=== PATIENT | female | born 1960 | race Caucasian/White ===

== ENCOUNTER 2016-09-07 14:56 | Emergency (ER) | payer OTHER ==
[2016-09-07 15:03] VITALS: BP 151/75; PULSE 73; TEMP 97.5; BMI 32.4
--- NOTE | 2016-09-07 16:28 | PDOC ---
History of Present Illness - General Chief Complaint: Rectal Bleed Stated Complaint: RASH Time Seen by Provider: 09/07/16 15:47 History Source: Patient Exam Limitations: No Limitations - History of Present Illness Initial Comments: 09/07/16 16:19 Patient is here with complaints of severe infection vaginally. States has suffered from multiple infections in the past, is probably related to her diabetes and usually resolves with course of Monistat cream that she buys over- the-counter. Patient states she has used one application for one week of Monistat but itching has persisted.. has continued thick white discharge, and significant itching. Is with one sexual partner but is not currently sexually active for many weeks. Partner has no symptoms. Dates blood sugar was within her normal limits today and checks it daily unable to get 2 months. Burning with her urination but feels is related to the excoriation she has sustained from scratching her perineum 09/07/16 19:30 Location: reports: none, genitalia Modifying Factors: improves with: scratching Associated Symptoms: reports: denies symptoms Past History - Travel Traveled outside of the country in the last 30 days: No Close contact w/someone who was outside of country & ill: No - Past Medical History Allergies/Adverse Reactions: Allergies Allergy/AdvReac Type Severity Reaction Status Date / Time No Known Allergies Allergy Verified 09/07/16 14:59 Home Medications: Ambulatory Orders Enalapril Maleate [Vasotec] 20 mg PO DAILY 12/14/15 Glimepiride 2 mg PO AM 12/14/15 Metformin HCl [Glucophage] 1,000 mg PO TID 12/14/15 Risperidone [Risperdal] 0 mg PO DAILY 12/14/15 Zolpidem Tartrate [Ambien] 10 mg PO HS 12/14/15 Fluconazole [Diflucan -] 150 mg PO DAILY #7 tablet 09/07/16 Diabetes: Yes (NIDDM) HTN: Yes - Psycho/Social/Smoking Cessation Hx Suicidal Ideation: No Smoking History: Never smoked Hx Alcohol Use: No Drug/Substance Use Hx: No Substance Use Type: None Review of Systems - Review of Systems Able to Perform ROS?: Yes Is the patient limited Macedonian proficient: Yes Constitutional: Yes: Symptoms Reported, See HPI, Malaise. No: Fever HEENTM: No: Symptoms Reported Respiratory: No: Symptoms reported Integumentary: Yes: Symptoms Reported, Lesions, Pruritus All Other Systems: Reviewed and Negative *Physical Exam - Vital Signs Last Vital Signs Temp Pulse Resp BP Pulse Ox 97.5 F L 73 18 151/75 100 09/07/16 15:01 09/07/16 15:01 09/07/16 15:01 09/07/16 15:01 09/07/16 15:01 - Physical Exam General Appearance: Yes: Nourished, Appropriately Dressed, Apparent Distress, Mild Distress HEENT: positive: TAMARA, Normal ENT Inspection, TMs Normal Respiratory/Chest: positive: Lungs Clear Female Pelvic Exam: negative: normal external exam (erythematous and excoriated perineum with whitish discharge vaginally. 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 NML intact, Fully Oriented, Alert, Normal Response, Motor Strength 5/5 Progress Note - Progress Note Progress Note: Vaginal candidiasis, will treat with Diflucan *DC/Admit/Observation/Transfer Diagnosis at time of Disposition: Loren vaginitis - Discharge Dispostion Disposition: HOME Condition at time of disposition: Stable Admit: No - Prescriptions Prescriptions: Fluconazole [Diflucan -] 150 mg PO DAILY #7 tablet - Referrals Referrals: STAFF,NOT ON [Primary Care Provider] - - Patient Instructions Printed Discharge Instructions: DI for Vaginal Yeast Infection Additional Instructions: Wash thoroughly with gentle soaps and dry thoroughly May use sitz baths, warm soaks 2-3 times a day Wear loose fitting clothes, and allow perineum to air dry Diflucan 150 mg tablet once, may repeat if not improved in 2-3 days May use Tylenol or Motrin for pain relief Follow-up with [facility] in 2-3 days or if worsening - Post Discharge Activity Work/School Note: Back to Work
== END 2016-09-07 16:37 | disposition home or self-care (01) ==
LOC: JERFT 14:56
DX: B37.3 Candidiasis of vulva and vagina (principal); E11.9 Type 2 diabetes mellitus without complications; I10 Essential (primary) hypertension; Z79.01 Long term (current) use of anticoagulants
CPT/HCPCS: 99281-25

== ENCOUNTER 2017-08-30 13:06 | Emergency (ER) | payer OTHER ==
[2017-08-30 13:10] VITALS: BP 122/83; PULSE 71; TEMP 98.6; BMI 32.5
[2017-08-30] MEDS ORDERED: traMADol HCL 50 MG TABLET PO ONE (15:14)
[2017-08-30] MEDS ORDERED: KETOROLAC TROMETHAMINE 30 MG/1 ML VIAL IM ONE (15:14)
[2017-08-30] MEDS ORDERED: traMADol HCL 50 MG TABLET ONE (15:16)
[2017-08-30] MEDS ORDERED: KETOROLAC TROMETHAMINE 30 MG/1 ML VIAL ONE (15:16)
--- NOTE | 2017-08-30 15:17 | PDOC ---
History of Present Illness - General Chief Complaint: Pain Stated Complaint: RT KNEE PAIN Time Seen by Provider: 08/30/17 14:57 History Source: Patient - History of Present Illness Occurred: reports: yesterday Severity: Yes: severe Lower Extremity Pain Location: right: knee Past History - Past Medical History Allergies/Adverse Reactions: Allergies Allergy/AdvReac Type Severity Reaction Status Date / Time No Known Allergies Allergy Verified 08/30/17 13:08 Home Medications: Ambulatory Orders Enalapril Maleate [Vasotec] 20 mg PO DAILY 12/14/15 Glimepiride 2 mg PO AM 12/14/15 Metformin HCl [Glucophage] 1,000 mg PO TID 12/14/15 Risperidone [Risperdal] 0 mg PO DAILY 12/14/15 Zolpidem Tartrate [Ambien] 10 mg PO HS 12/14/15 Fluconazole [Diflucan -] 150 mg PO DAILY #7 tablet 09/07/16 Acetaminophen [Tylenol] 650 mg PO Q6H #30 tablet 08/30/17 COPD: No Diabetes: Yes (NIDDM) HTN: Yes Hypercholesterolemia: Yes Other medical history: OP,ARITHRITIS - Suicide/Smoking/Psychosocial Hx Smoking History: Never smoked Have you smoked in the past 12 months: No Information on smoking cessation initiated: No Hx Alcohol Use: No Drug/Substance Use Hx: No Substance Use Type: None Review of Systems - Review of Systems Constitutional: No: Chills, Fever Musculoskeletal: Yes: Joint Pain, Joint Swelling *Physical Exam - Vital Signs Last Vital Signs Temp Pulse Resp BP Pulse Ox 98.6 F 71 18 122/83 100 08/30/17 13:08 08/30/17 13:08 08/30/17 13:08 08/30/17 13:08 08/30/17 13:08 - Physical Exam General Appearance: Yes: Appropriately Dressed, Mild Distress HEENT: positive: Normal Voice Respiratory/Chest: negative: Respiratory Distress Extremity: positive: Swelling (diffusely to R knee, pain w/ extension, no hot, red joint) Integumentary: positive: Dry, Warm Neurologic: positive: Fully Oriented, Alert, Normal Mood/Affect ED Treatment Course - RADIOLOGY Radiology Studies Ordered: Category Date Time Status KNEE 2 POS-RIGHT [RAD] Stat Radiology 08/30/17 15:14 Ordered Medical Decision Making - Medical Decision Making 08/30/17 15:14 57-year-old female, history of diabetes, hypertension, possible arthritis, presents with right knee pain and swelling since yesterday. Pain w/ weight bearing. Patient states she intermittently has pain to left knee and right shoulder but never to right knee. No recent trauma. Taking 600 of Motrin with no relief. Denies fever or chills. No history of gout or septic joint See exam Possible arthritis to R knee No trauma No h/o gout or septic joint Stable w/ no e/o infxn -pain control -XR -STEVAN -anticipate dc w/ pmd and ortho f/u 08/30/17 15:16 08/30/17 16:00 Minimal osteoarthritic changes seen on x-ray, no joint effusion. Stevan bandage applied. Patient discharged with prescription for Tylenol and given orthopedic referral. Pt using her own cane *DC/Admit/Observation/Transfer Diagnosis at time of Disposition: Right knee pain Qualifiers: Chronicity: acute Qualified Code(s): M25.561 - Pain in right knee - Discharge Dispostion Disposition: HOME Condition at time of disposition: Improved - Prescriptions Prescriptions: Acetaminophen [Tylenol] 650 mg PO Q6H #30 tablet - Referrals Referrals: ON STAFF,NOT [Primary Care Provider] - Chang Lee MD [Staff Physician] - - Patient Instructions Printed Discharge Instructions: Osteoarthritis Additional Instructions: Your xray showed sign of osteoarthritis. Take Tylenol as prescribed and follow -up with Dr. Lee of orthopedics - Post Discharge Activity
== END 2017-08-30 16:07 | disposition home or self-care (01) ==
LOC: JERFT 13:06
PROC: 3E0233Z Introduction of Anti-inflammatory into Muscle, Percutaneous Approach (ICD-10-PCS; principal; 2017-08-30)
DX: M17.11 Unilateral primary osteoarthritis, right knee (principal); I10 Essential (primary) hypertension; E11.9 Type 2 diabetes mellitus without complications; Z79.84 Long term (current) use of oral hypoglycemic drugs; E78.00 Pure hypercholesterolemia, unspecified
CPT/HCPCS: 73560-TC-RT; 96372; 99281-25